=== PATIENT | male | born 1975 | race Caucasian/White ===

== ENCOUNTER 2021-08-28 09:44 | Observation (INO) | payer BC ==
[~2021-08-28] VITALS: Ht 172.7 cm; Wt 112.2 kg
[2021-08-28 10:55] LABS: RED BLOOD COUNT 4.35 M/UL (4.20-5.50)
[2021-08-28 11:17] LABS: BUN/CREATININE RATIO 10 (0-10)
[2021-08-28] MEDS ORDERED: DILTIAZEM 24HR300 M1 PO (14:48)
[2021-08-28] MEDS ORDERED: ESCITALOPRAM OX10 MG PO (14:49)
[2021-08-28] MEDS ORDERED: CLONIDINE HCL0.2 MG PO (14:50)
[2021-08-28] MEDS ORDERED: LEVALBUTER1.25 MG/3 INH (14:50)
[2021-08-28] MEDS ORDERED: METFORMIN HCL1000 MG PO (14:51)
[2021-08-28] MEDS ORDERED: JANUVIA100 MG PO (14:52)
[2021-08-28] MEDS ORDERED: NITROGLYCERIN0.4 MG SL (14:52)
[2021-08-28] MEDS ORDERED: COREG 25MG TAB25 MG PO (14:52)
[2021-08-28] MEDS ORDERED: RANOLAZINE ER1000 MG PO (14:53)
[2021-08-28] MEDS ORDERED: XARELTO2.5 MG PO (14:53)
[2021-08-28] MEDS ORDERED: ISOSORBIDE MON120 MG PO (15:00)
[2021-08-28] MEDS ORDERED: CRESTOR40 MG PO (15:01)
[2021-08-28] MEDS ORDERED: OMEPRAZOLE40 MG PO (15:02)
[2021-08-28] MEDS ORDERED: BRILINTA90 MG PO (15:03)
[2021-08-28] MEDS ORDERED: LASIX40 MG PO (15:04)
[2021-08-28] MEDS ORDERED: NORVASC5 MG PO (15:05)
[2021-08-28] MEDS ORDERED: CLARITIN10 M2 PO (15:05)
[2021-08-28] MEDS ORDERED: L-ARGININE1000 MG PO (15:06)
[2021-08-29 02:02] LABS: HEMOGLOBIN 13.6 gm/dl (14.0-17.5); RED BLOOD COUNT 4.26 M/UL (4.20-5.50); WHITE BLOOD COUNT 7.9 K/UL (4.5-11.0)
[2021-08-29 02:21] LABS: BUN/CREATININE RATIO 10 (0-10)
[2021-08-30 02:09] LABS: HEMOGLOBIN 13.8 gm/dl (14.0-17.5); RED BLOOD COUNT 4.29 M/UL (4.20-5.50); WHITE BLOOD COUNT 9.6 K/UL (4.5-11.0)
[2021-08-30] MEDS ORDERED: HYDRALAZINE HCL25 MG PO (17:34)
== END 2021-08-30 18:05 | disposition home or self-care (01) ==
LOC: ER1 09:44 → CDU 12:36 → MED SURG 4 14:09 → PROG CARE 19:34
PROVIDERS: Internal Medicine; Physician Assistant; Physician Assistant Medical; ADMIT Internal Medicine
DX: I25.111 Atherosclerotic heart disease of native coronary artery with angina pectoris with documented spasm (principal); G47.33 Obstructive sleep apnea (adult) (pediatric); M81.0 Age-related osteoporosis without current pathological fracture; E11.9 Type 2 diabetes mellitus without complications; I10 Essential (primary) hypertension; E78.5 Hyperlipidemia, unspecified; I48.0 Paroxysmal atrial fibrillation; E66.9 Obesity, unspecified; F41.1 Generalized anxiety disorder; Z79.84 Long term (current) use of oral hypoglycemic drugs; Z20.822 Contact with and (suspected) exposure to COVID-19; Z86.16 Personal history of COVID-19; Z90.49 Acquired absence of other specified parts of digestive tract; Z95.0 Presence of cardiac pacemaker; Z79.82 Long term (current) use of aspirin; Z79.01 Long term (current) use of anticoagulants; Z95.5 Presence of coronary angioplasty implant and graft; Z68.38 Body mass index [BMI] 38.0-38.9, adult
CPT/HCPCS: 36415; 71045; 71046; 80048; 80053; 82550; 82553; 82565; 82962; 83735; 84484; 85025; 85027; 85379; 93005; 96374; 96375; 99285; G0378; J2270; J3475; P9047; U0002